=== PATIENT | male | born 1995 | race Caucasian/White ===

== ENCOUNTER 2022-06-02 16:42 | Emergency (ER) | payer OTHER, SELFPAY ==
[2022-06-02] VITALS (10 sets, daily range): BP systolic 137–159; BP diastolic 88–99; PULSE 64–73; RESP 14–18; TEMP 36.8; O2SAT 95–98; BMI 31.1
--- NOTE | 2022-06-02 17:03 | DI.CT.S_ITS ---
PROCEDURE: CT KIDNEY URETER BLADDER (KUB) INDICATIONS: flank pain, hx of stones TECHNIQUE: Axial sections were acquired from the lung bases to the pubic symphysis. Coronal and sagittal reformats were performed. For radiation dose reduction, the following was used: automated exposure control, adjustment of mA and/or kV according to patient size. COMPARISON: None. FINDINGS: Image quality: Excellent. Lung bases: Unremarkable. Heart: No significant findings. URINARY: Right Kidney: No hydronephrosis or renal stones. Suggestion of minimal right perinephric stranding. There is also suggestion of mild thickening of the right renal pelvis and subtle peripelvic stranding. Right Ureter: Right ureter is normal in course and caliber. Left Kidney: No stones or hydronephrosis. Left Ureter: No hydroureter. Bladder: There is mild circumferential urinary bladder wall thickening slightly more pronounced than expected for degree of distension. No perivesicular inflammation. ABDOMEN: Liver: Unremarkable. Gallbladder: Unremarkable in noncontrast appearance. Biliary ducts: Unremarkable. Pancreas: Unremarkable. Spleen: Unremarkable. Adrenal Glands: Unremarkable. Stomach and Bowel: Stomach, small bowel loops, and colon are unremarkable. Normal appendix. Peritoneum: No abnormal intraperitoneal fluid. No free air. Ventral Wall: No hernia. Abdominal Nodes: No enlarged retroperitoneal or mesenteric lymph nodes. Vessels: Aorta and inferior vena cava are normal in size. PELVIS: Pelvic Organs: Unremarkable. Pelvic Nodes: Unremarkable. Miscellaneous: No inguinal hernias are seen. Bones: Unremarkable. IMPRESSION: 1. Suggestion of minimal right perinephric and right renal pelvic stranding. Also, there is also mild circumferential urinary bladder wall thickening greater than expected for degree of distension. Findings may represent an infectious uropathy. Recommend clinical and laboratory correlation. 2. Otherwise, no evidence for urolithiasis or obstructive uropathy. 3. Normal appendix. Dictated by: Jono Spencer M.D. on 06/02/2022 at 17:30 Approved by: Jono Spencer M.D. on 06/02/2022 at 17:35
[2022-06-02] MEDS: KETOROLAC 30 MG/ML VIAL 15 MG IV (17:24)
[2022-06-02] MEDS: ONDANSETRON 4 MG/2 ML INJ IV (17:24)
[2022-06-02 17:31] LABS: Add Manual Diff / Slide Review NO; Basophils Absolute Auto 0 /uL (0-100); Basophils Percent Auto 0.5 % (0-2); Eosinophils Absolute Auto 0 /uL (0-450); Eosinophils Percent Auto 0.5 % (2-4); Hematocrit 39.6 % (41-53); Lymphocytes Absolute Auto 1500 /uL (1100-4500); Lymphocytes Percent Auto 20.7 % (25-40); Mean Corpuscular HGB Conc 35.3 % (30-36); Mean Corpuscular Hemoglobin 29.8 PG (26-34); Mean Corpuscular Volume 84.5 fL (80-100); Monocytes Absolute Auto 600 /uL (0-900); Monocytes Percent Auto 8.4 % (3-14); Neutrophils Absolute Auto 5100 /uL (1500-7000); Neutrophils Percent Auto 69.9 % (50-75); Platelet Count 226 X10^3/uL (150-400); Red Blood Cell Count 4.68 X10^6/uL (4.5-5.9); Red Cell Distribution Width 12.4 % (11.6-14.8); White Blood Cell Count 7.3 X10^3/uL (4.5-11.0)
[2022-06-02 17:35] LABS: Bacteria Urine None Seen; Culture Indicated Urine Cult Not Indicated; RBC Urine None Seen (0-5/HPF); Urine Comments Microscopic Normal; WBC Urine None Seen (0-5/HPF)
[2022-06-02 17:39] LABS: Alanine Aminotransferase 28 IU/L (<50); Albumin 4.6 g/dL (3.5-5.0); Albumin Globulin Ratio 1.4 (1.0-2.8); Alkaline Phosphatase 83 U/L (38-126); Aspartate Aminotransferase 25 IU/L (17-59); BUN Creatinine Ratio 7.4 (6-22); Bilirubin Total 0.5 mg/dL (0.2-1.3); Blood Urea Nitrogen 16 mg/dL (9-20); Calcium 8.8 mg/dL (8.4-10.2); Carbon Dioxide 30 mmol/L (22-32); Chloride 99 mmol/L (98-107); Estimated Glomerular Filt Rate 43 mL/min (>60); Globulin 3.2 g/dL (1.7-4.1); Glucose 109 mg/dL (70-100); HEMOLYSIS < 15 (0-50); Lipase 68 U/L (23-300); Potassium 3.5 mmol/L (3.4-5.1); Sodium 137 mmol/L (137-145); Total Protein 7.8 g/dL (6.3-8.2)
--- NOTE | 2022-06-02 17:50 | ED_ITS ---
HPI - Male Genitourinary <DO Edi Jade Last Filed: 06/03/22 22:04> General Chief complaint: Urogenital-Male Stated complaint: thinks kidney stone Time Seen by Provider: 06/02/22 17:02 Source: patient and family Mode of arrival: Ambulatory Related Data Allergies Allergy/AdvReac Type Severity Reaction Status Date / Time No Known Drug Allergies Allergy Verified 06/03/22 21:53 <DO Edi Pierce Last Filed: 06/03/22 02:01> History of Present Illness HPI Narrative: Patient is a 27-year-old male who presents with bilateral flank pain. He says it been ongoing for the last few days is actually kind of radiating around his left side. He has been unable to sleep secondary to the pain. He has been taking Tylenol 1000 mg every 6 hours for pain. He denies any painful frequent urination. No significant hematuria no nausea or vomiting. Pain does not radiate down the legs he denies any injury. <DO Edi Pierce Last Filed: 06/03/22 02:01> Review of Systems ROS Unobtainable: All systems reviewed & are unremarkable except as noted in HPI and below Patient History <DO Edi Jade Last Filed: 06/03/22 22:04> Social History Smoking Status: Former smoker Smoking Status: Former smoker alcohol intake frequency: a few times a week Substance Use Type: does not use Exam <DO Edi Jade Last Filed: 06/03/22 22:04> Initial Vital Signs Initial Vital Signs: Vital Signs Temperature 98.2 F 06/02/22 16:50 Pulse Rate 69 06/02/22 16:50 Respiratory Rate 18 06/02/22 16:50 Blood Pressure 154/99 H 06/02/22 16:50 Pulse Oximetry 97 06/02/22 16:50 Oxygen Delivery Method Room Air 06/02/22 16:50 <DO Edi Pierce Last Filed: 06/03/22 02:01> Initial Vital Signs Initial Vital Signs: Vital Signs Temperature 98.2 F 06/02/22 16:50 Pulse Rate 69 06/02/22 16:50 Respiratory Rate 18 06/02/22 16:50 Blood Pressure 154/99 H 06/02/22 16:50 Pulse Oximetry 97 06/02/22 16:50 Oxygen Delivery Method Room Air 06/02/22 16:50 GENERAL: Patient 27-year-old healthy and in no acute distress. HEENT: Head atraumatic,EOMI, pupils reactive, face symmetric, moist mucous membranes CARDIOVASCULAR: Regular rate and rhythm without murmurs, rubs or gallops. RESPIRATORY: Breath sounds equal bilaterally, no wheezes rales or rhonchi. ABDOMEN: Soft, nontender. Normoactive bowel sounds all 4 quadrants. No guarding or rebound. : Mild left flank pain EXTREMITIES: Normal range of motion, no clubbing or edema. Neurovascularly intact NEUROLOGICAL: Alert and oriented x4 SKIN: Warm, dry, no laceration, no petechiae, no rashes or lesions. Course <Kevon Cuellar DO - Last Filed: 06/03/22 22:04> Orders Ordered: Discontinued Medications Sodium Chloride (Normal Saline 0.9%) 1,000 mls @ 1,000 mls/hr IV BOLUS ONE Stop: 06/02/22 19:14 Last Infusion: 06/02/22 19:08 Dose: 0 mls/hr Documented By: Admin: 06/02/22 18:16 Dose: 1,000 mls/hr Documented By: WILFRED Sodium Chloride (Normal Saline 0.9%) 1,000 mls @ 1,000 mls/hr IV BOLUS ONE Stop: 06/02/22 19:14 Last Infusion: 06/02/22 21:05 Dose: 0 mls/hr Documented By: Admin: 06/02/22 19:12 Dose: 1,000 mls/hr Documented By: ANGIE Ketorolac Tromethamine (Ketorolac 30 Mg/Ml Vial) 15 mg IV NOW ONE Stop: 06/02/22 17:04 Last Admin: 06/02/22 17:24 Dose: 15 mg Documented By: WILFRED Ondansetron HCl (Ondansetron 4 Mg Odt) 4 mg PO NOW PRN PRN Reason: Nausea And Vomiting Ondansetron HCl (Ondansetron 4 Mg/2 Ml Inj) 4 mg IV NOW PRN PRN Reason: Nausea And Vomiting Last Admin: 06/02/22 17:24 Dose: 4 mg Documented By: WILFRED Vital Signs Vital signs: Vital Signs - 8 hr 06/02/22 18:11 06/02/22 18:12 06/02/22 18:12 Pulse Rate 67 68 Respiratory Rate 14 Blood Pressure 144/94 H Pulse Oximetry 95 97 Oxygen Delivery Method Room Air 06/02/22 18:30 06/02/22 18:30 06/02/22 19:00 Pulse Rate 65 Respiratory Rate Blood Pressure 137/88 143/94 H Pulse Oximetry 97 Oxygen Delivery Method 06/02/22 19:00 06/02/22 21:17 06/02/22 21:17 Pulse Rate 64 66 66 Respiratory Rate Blood Pressure 144/94 H Pulse Oximetry 97 96 96 Oxygen Delivery Method 06/02/22 22:37 06/02/22 22:41 06/02/22 22:41 Pulse Rate 67 67 67 Respiratory Rate Blood Pressure 159/88 H Pulse Oximetry 97 97 97 Oxygen Delivery Method <Madiha Yo DO - Last Filed: 06/03/22 02:01> Orders Ordered: Discontinued Medications Sodium Chloride (Normal Saline 0.9%) 1,000 mls @ 1,000 mls/hr IV BOLUS ONE Stop: 06/02/22 19:14 Last Infusion: 06/02/22 19:08 Dose: 0 mls/hr Documented By: Admin: 06/02/22 18:16 Dose: 1,000 mls/hr Documented By: WILFRED Sodium Chloride (Normal Saline 0.9%) 1,000 mls @ 1,000 mls/hr IV BOLUS ONE Stop: 06/02/22 19:14 Last Infusion: 06/02/22 21:05 Dose: 0 mls/hr Documented By: Admin: 06/02/22 19:12 Dose: 1,000 mls/hr Documented By: ANGIE Ketorolac Tromethamine (Ketorolac 30 Mg/Ml Vial) 15 mg IV NOW ONE Stop: 06/02/22 17:04 Last Admin: 06/02/22 17:24 Dose: 15 mg Documented By: WILFRED Ondansetron HCl (Ondansetron 4 Mg Odt) 4 mg PO NOW PRN PRN Reason: Nausea And Vomiting Ondansetron HCl (Ondansetron 4 Mg/2 Ml Inj) 4 mg IV NOW PRN PRN Reason: Nausea And Vomiting Last Admin: 06/02/22 17:24 Dose: 4 mg Documented By: WILFRED Vital Signs Vital signs: Vital Signs - 8 hr 06/02/22 18:11 06/02/22 18:12 06/02/22 18:12 Pulse Rate 67 68 Respiratory Rate 14 Blood Pressure 144/94 H Pulse Oximetry 95 97 Oxygen Delivery Method Room Air 06/02/22 18:30 06/02/22 18:30 06/02/22 19:00 Pulse Rate 65 Respiratory Rate Blood Pressure 137/88 143/94 H Pulse Oximetry 97 Oxygen Delivery Method 06/02/22 19:00 06/02/22 21:17 06/02/22 21:17 Pulse Rate 64 66 66 Respiratory Rate Blood Pressure 144/94 H Pulse Oximetry 97 96 96 Oxygen Delivery Method 06/02/22 22:37 06/02/22 22:41 06/02/22 22:41 Pulse Rate 67 67 67 Respiratory Rate Blood Pressure 159/88 H Pulse Oximetry 97 97 97 Oxygen Delivery Method MDM - Male Genitourinary <Kevon Cuellar DO - Last Filed: 06/03/22 22:04> Lab Data 06/02/22 17:20 06/02/22 19:40 Labs: Lab Results 06/02/22 06/02/22 06/02/22 Range/Units 17:10 17:10 17:20 WBC 7.3 (4.5-11.0) X10^3/uL RBC 4.68 (4.5-5.9) X10^6/uL Hgb 14.0 (13.5-17.5) g/dL Hct 39.6 L (41-53) % MCV 84.5 (80-100) fL MCH 29.8 (26-34) PG MCHC 35.3 (30-36) % RDW 12.4 (11.6-14.8) % Plt Count 226 (150-400) X10^3/uL Neut % (Auto) 69.9 (50-75) % Lymph % (Auto) 20.7 L (25-40) % [place] % (Auto) 8.4 (3-14) % Eos % (Auto) 0.5 L (2-4) % Baso % (Auto) 0.5 (0-2) % Neut # (Auto) 5100 (4410-3188) /uL Lymph # (Auto) 1500 (7007-5110) /uL [place] # (Auto) 600 (0-900) /uL Eos # (Auto) 0 (0-450) /uL Baso # (Auto) 0 (0-100) /uL Sodium (137-145) mmol/L Potassium (3.4-5.1) mmol/L Chloride (98-107) mmol/L Carbon Dioxide (22-32) mmol/L BUN (9-20) mg/dL Creatinine (0.66-1.25) mg/dL Estimated GFR (>60) mL/min BUN/Creatinine Ratio (6-22) Glucose (70-100) mg/dL Calcium (8.4-10.2) mg/dL Total Bilirubin (0.2-1.3) mg/dL AST (17-59) IU/L ALT (<50) IU/L Alkaline Phosphatase (38-126) U/L Total Creatine Kinase (55-170) U/L CK-MB (CK-2) (<2.37) ng/mL CK-MB (CK-2) Rel Index (1.5-5.0) % Troponin I (0.01-0.034) ng/mL Total Protein (6.3-8.2) g/dL Albumin (3.5-5.0) g/dL Globulin (1.7-4.1) g/dL Albumin/Globulin Ratio (1.0-2.8) Lipase (23-300) U/L Urine RBC None seen (0-5/HPF) Urine WBC None seen (0-5/HPF) Urine Bacteria None seen (None) Ur Culture Indicated? Cult not indicated Micro UA Comment Microscopic normal Ur Random Sodium 20 L (30-90) mmol/L Urine Creatinine 128.1 mg/dL 06/02/22 06/02/22 06/02/22 Range/Units 17:20 17:20 19:40 WBC (4.5-11.0) X10^3/uL RBC (4.5-5.9) X10^6/uL Hgb (13.5-17.5) g/dL Hct (41-53) % MCV (80-100) fL MCH (26-34) PG MCHC (30-36) % RDW (11.6-14.8) % Plt Count (150-400) X10^3/uL Neut % (Auto) (50-75) % Lymph % (Auto) (25-40) % [place] % (Auto) (3-14) % Eos % (Auto) (2-4) % Baso % (Auto) (0-2) % Neut # (Auto) (8930-7945) /uL Lymph # (Auto) (0697-8443) /uL [place] # (Auto) (0-900) /uL Eos # (Auto) (0-450) /uL Baso # (Auto) (0-100) /uL Sodium 137 136 L (137-145) mmol/L Potassium 3.5 3.7 (3.4-5.1) mmol/L Chloride 99 102 (98-107) mmol/L Carbon Dioxide 30 28 (22-32) mmol/L BUN 16 16 (9-20) mg/dL Creatinine 2.15 H 1.87 H (0.66-1.25) mg/dL Estimated GFR 43 L 51 L (>60) mL/min BUN/Creatinine Ratio 7.4 8.6 (6-22) Glucose 109 H 95 (70-100) mg/dL Calcium 8.8 7.7 L (8.4-10.2) mg/dL Total Bilirubin 0.5 (0.2-1.3) mg/dL AST 25 (17-59) IU/L ALT 28 (<50) IU/L Alkaline Phosphatase 83 (38-126) U/L Total Creatine Kinase 349 H (55-170) U/L CK-MB (CK-2) 0.38 (<2.37) ng/mL CK-MB (CK-2) Rel Index 0.1 L (1.5-5.0) % Troponin I < 0.012 (0.01-0.034) ng/mL Total Protein 7.8 (6.3-8.2) g/dL Albumin 4.6 (3.5-5.0) g/dL Globulin 3.2 (1.7-4.1) g/dL Albumin/Globulin Ratio 1.4 (1.0-2.8) Lipase 68 (23-300) U/L Urine RBC (0-5/HPF) Urine WBC (0-5/HPF) Urine Bacteria (None) Ur Culture Indicated? Micro UA Comment Ur Random Sodium (30-90) mmol/L Urine Creatinine mg/dL Urine Dip Bedside Urine Glucose Negative Bedside Urine Bilirubin - Negative Bedside Urine Ketone - Negative Urine Specific Valders 1.010 Bedside Urine Occult Blood +/- Bedside Urine pH 6 Bedside Urine Protein ++ 100 Bedside Urine Urobilinogen - Negative Bedside Urine Nitrite - Negative Bedside Urine Leukocytes - Negative Esterase <Madiha Srinath, DO - Last Filed: 06/03/22 02:01> Lab Data Labs: Lab Results 06/02/22 06/02/22 06/02/22 Range/Units 17:10 17:10 17:20 WBC 7.3 (4.5-11.0) X10^3/uL RBC 4.68 (4.5-5.9) X10^6/uL Hgb 14.0 (13.5-17.5) g/dL Hct 39.6 L (41-53) % MCV 84.5 (80-100) fL MCH 29.8 (26-34) PG MCHC 35.3 (30-36) % RDW 12.4 (11.6-14.8) % Plt Count 226 (150-400) X10^3/uL Neut % (Auto) 69.9 (50-75) % Lymph % (Auto) 20.7 L (25-40) % [place] % (Auto) 8.4 (3-14) % Eos % (Auto) 0.5 L (2-4) % Baso % (Auto) 0.5 (0-2) % Neut # (Auto) 5100 (9750-3772) /uL Lymph # (Auto) 1500 (6254-8578) /uL [place] # (Auto) 600 (0-900) /uL Eos # (Auto) 0 (0-450) /uL Baso # (Auto) 0 (0-100) /uL Sodium (137-145) mmol/L Potassium (3.4-5.1) mmol/L Chloride (98-107) mmol/L Carbon Dioxide (22-32) mmol/L BUN (9-20) mg/dL Creatinine (0.66-1.25) mg/dL Estimated GFR (>60) mL/min BUN/Creatinine Ratio (6-22) Glucose (70-100) mg/dL Calcium (8.4-10.2) mg/dL Total Bilirubin (0.2-1.3) mg/dL AST (17-59) IU/L ALT (<50) IU/L Alkaline Phosphatase (38-126) U/L Total Creatine Kinase (55-170) U/L CK-MB (CK-2) (<2.37) ng/mL CK-MB (CK-2) Rel Index (1.5-5.0) % Troponin I (0.01-0.034) ng/mL Total Protein (6.3-8.2) g/dL Albumin (3.5-5.0) g/dL Globulin (1.7-4.1) g/dL Albumin/Globulin Ratio (1.0-2.8) Lipase (23-300) U/L Urine RBC None seen (0-5/HPF) Urine WBC None seen (0-5/HPF) Urine Bacteria None seen (None) Ur Culture Indicated? Cult not indicated Micro UA Comment Microscopic normal Ur Random Sodium 20 L (30-90) mmol/L Urine Creatinine 128.1 mg/dL 06/02/22 06/02/22 06/02/22 Range/Units 17:20 17:20 19:40 WBC (4.5-11.0) X10^3/uL RBC (4.5-5.9) X10^6/uL Hgb (13.5-17.5) g/dL Hct (41-53) % MCV (80-100) fL MCH (26-34) PG MCHC (30-36) % RDW (11.6-14.8) % Plt Count (150-400) X10^3/uL Neut % (Auto) (50-75) % Lymph % (Auto) (25-40) % [place] % (Auto) (3-14) % Eos % (Auto) (2-4) % Baso % (Auto) (0-2) % Neut # (Auto) (9807-7673) /uL Lymph # (Auto) (7748-2915) /uL [place] # (Auto) (0-900) /uL Eos # (Auto) (0-450) /uL Baso # (Auto) (0-100) /uL Sodium 137 136 L (137-145) mmol/L Potassium 3.5 3.7 (3.4-5.1) mmol/L Chloride 99 102 (98-107) mmol/L Carbon Dioxide 30 28 (22-32) mmol/L BUN 16 16 (9-20) mg/dL Creatinine 2.15 H 1.87 H (0.66-1.25) mg/dL Estimated GFR 43 L 51 L (>60) mL/min BUN/Creatinine Ratio 7.4 8.6 (6-22) Glucose 109 H 95 (70-100) mg/dL Calcium 8.8 7.7 L (8.4-10.2) mg/dL Total Bilirubin 0.5 (0.2-1.3) mg/dL AST 25 (17-59) IU/L ALT 28 (<50) IU/L Alkaline Phosphatase 83 (38-126) U/L Total Creatine Kinase 349 H (55-170) U/L CK-MB (CK-2) 0.38 (<2.37) ng/mL CK-MB (CK-2) Rel Index 0.1 L (1.5-5.0) % Troponin I < 0.012 (0.01-0.034) ng/mL Total Protein 7.8 (6.3-8.2) g/dL Albumin 4.6 (3.5-5.0) g/dL Globulin 3.2 (1.7-4.1) g/dL Albumin/Globulin Ratio 1.4 (1.0-2.8) Lipase 68 (23-300) U/L Urine RBC (0-5/HPF) Urine WBC (0-5/HPF) Urine Bacteria (None) Ur Culture Indicated? Micro UA Comment Ur Random Sodium (30-90) mmol/L Urine Creatinine mg/dL Urine Dip Bedside Urine Glucose Negative Bedside Urine Bilirubin - Negative Bedside Urine Ketone - Negative Urine Specific [place] 1.010 Bedside Urine Occult Blood +/- Bedside Urine pH 6 Bedside Urine Protein ++ 100 Bedside Urine Urobilinogen - Negative Bedside Urine Nitrite - Negative Bedside Urine Leukocytes - Negative Esterase Imaging Data CT scan - abdomen/pelvis: Radiologist's Impression: PROCEDURE:? CT KIDNEY URETER BLADDER (KUB) ? INDICATIONS:? flank pain, hx of stones ? TECHNIQUE:? Axial sections were acquired from the lung bases to the pubic symphysis.? Coronal and sagittal reformats were performed.? For radiation dose reduction, the following was used: ?automated exposure control, adjustment of mA and/or kV according to patient size.? ? COMPARISON:? None. ? FINDINGS:? Image quality:? Excellent.? ? Lung bases:? Unremarkable.? ? Heart:? No significant findings. ? URINARY: Right Kidney:? No hydronephrosis or renal stones.? Suggestion of minimal right perinephric stranding.? There is also suggestion of mild thickening of the right renal pelvis and subtle peripelvic stranding.? Right Ureter:? Right ureter is normal in course and caliber.? ? Left Kidney: ? No stones or hydronephrosis. Left Ureter:? No hydroureter.? ? Bladder:? There is mild circumferential urinary bladder wall thickening slightly more pronounced than expected for degree of distension.? No perivesicular inflammation. ? ABDOMEN: Liver:? Unremarkable.? ? Gallbladder:? Unremarkable in noncontrast appearance.? ? Biliary ducts:? Unremarkable.? ? Pancreas:? Unremarkable.? ? Spleen:? Unremarkable.? ? Adrenal Glands:? Unremarkable.? ? ? Stomach and Bowel:? Stomach, small bowel loops, and colon are unremarkable.? Normal appendix. Peritoneum:? No abnormal intraperitoneal fluid.? No free air.? ? Ventral Wall: ? No hernia.? Abdominal Nodes:? No enlarged retroperitoneal or mesenteric lymph nodes.? Vessels:? Aorta and inferior vena cava are normal in size.? ? PELVIS: Pelvic Organs:? Unremarkable.? ? Pelvic Nodes: Unremarkable. Miscellaneous: No inguinal hernias are seen. ? ? ? Bones:? Unremarkable. ? IMPRESSION:? ? 1. Suggestion of minimal right perinephric and right renal pelvic stranding.? Also, there is also mild circumferential urinary bladder wall thickening greater than expected for degree of distension.? Findings may represent an infectious uropathy.? Recommend clinical and laboratory correlation. ? 2. Otherwise, no evidence for urolithiasis or obstructive uropathy. ? 3. Normal appendix.? Dictated by: Jono Spencer M.D. on 06/02/2022 at 17:30 MDM Narrative Medical decision making narrative: Patient healthy 27-year-old male who presents with bilateral flank pain radiating to the left side. Blood work reveals an RODRIGUEZ with a creatinine of 2.1 which does improve with 2 L of IV fluids 1.7. He is noted to be mildly hypertensive blood pressure 150s to 140s. He is no evidence of nephrolithiasis. In fact he has right-sided perinephric stranding suspicious for infectious etiology. However patient has no fever chills leukocytosis or sign of infection. Urinalysis is also negative. He is feeling better after Toradol. RODRIGUEZ may or may not be related to elevated blood pressure though his blood pressure does not seem to be extreme. Commended Tylenol and not ibuprofen. Recommended that he check his blood pressure regularly. Discharge Plan Departure Patient Disposition: Home Clinical Impression: RODRIGUEZ (acute kidney injury), Kidney pain Instructions: DI for Kidney Failure Activity Restrictions/Additional Instructions: *You have been diagnosed with acute kidney injury *What to do: At this time please have your blood work rechecked either tomorrow or the next day. Avoid ibuprofen/Aleve/naproxen/NSAIDs If your kidney function does not improve you may need to have further evaluation of your kidneys with the nephrologists or renal ultrasound I do recommend that you check her blood pressure 1 to 2 times daily and keep a log. *Continue to take medications as directed Tylenol 1000 mg every 6 hours if needed for [id number] pain *Follow up with your primary care provider in 2-3 days or call [phone] *Return to ER if you should have increasing pain, nausea vomiting fever or any new, worsening or concerning symptoms Referrals: ProviderMartha [Primary Care Provider] - Stand Alone Forms: Patient Portal/API
[2022-06-02 18:15] LABS: Creatine Kinase 349 U/L (55-170)
[2022-06-02] MEDS: SODIUM CHLORIDE 0.9% 1,000 ML 1000 ML IV ×2 (18:16→19:12)
[2022-06-02 18:29] LABS: Troponin I < 0.012 ng/mL (0.01-0.034)
[2022-06-02 18:31] LABS: CKMB % Relative Index 0.1 % (1.5-5.0); Creatine Kinase MB 0.38 ng/mL (<2.37)
[2022-06-02 20:08] LABS: BUN Creatinine Ratio 8.6 (6-22); Blood Urea Nitrogen 16 mg/dL (9-20); Calcium 7.7 mg/dL (8.4-10.2); Carbon Dioxide 28 mmol/L (22-32); Chloride 102 mmol/L (98-107); Estimated Glomerular Filt Rate 51 mL/min (>60); Glucose 95 mg/dL (70-100); HEMOLYSIS < 15 (0-50); Potassium 3.7 mmol/L (3.4-5.1); Sodium 136 mmol/L (137-145)
[2022-06-02 21:56] LABS: Creatinine Urine Random 128.1 mg/dL; Sodium Urine Random 20 mmol/L (30-90)
== END 2022-06-02 22:49 | disposition home or self-care (01) ==
PROVIDERS: Emergency Medicine; Emergency Provider Emergency Medicine
DX: N17.9 Acute kidney failure, unspecified (principal); N23 Unspecified renal colic; R03.0 Elevated blood-pressure reading, without diagnosis of hypertension
CPT/HCPCS: 36415; 74176; 80048; 80053; 81003; 81015; 82550; 82553; 82570; 83690; 84300; 84484; 85025; 96361; 96374; 96375; 99284; J1885; J2405

== ENCOUNTER 2022-06-03 21:39 | Emergency (ER) | payer OTHER, SELFPAY ==
[2022-06-03 21:49] VITALS: BP 158/101; PULSE 62; RESP 16; TEMP 36.9; O2SAT 98; BMI 32.3
[2022-06-03] MEDS: SODIUM CHLORIDE 0.9% 1,000 ML 1000 ML IV (22:23)
[2022-06-03 22:27] LABS: Add Manual Diff / Slide Review NO; Basophils Absolute Auto 0 /uL (0-100); Basophils Percent Auto 0.2 % (0-2); Eosinophils Absolute Auto 0 /uL (0-450); Eosinophils Percent Auto 0.4 % (2-4); Hematocrit 38.4 % (41-53); Hemoglobin 13.2 g/dL (13.5-17.5); Lymphocytes Absolute Auto 1300 /uL (1100-4500); Lymphocytes Percent Auto 15.3 % (25-40); Mean Corpuscular HGB Conc 34.5 % (30-36); Mean Corpuscular Hemoglobin 29.6 PG (26-34); Mean Corpuscular Volume 85.9 fL (80-100); Monocytes Absolute Auto 600 /uL (0-900); Monocytes Percent Auto 7.5 % (3-14); Neutrophils Absolute Auto 6500 /uL (1500-7000); Neutrophils Percent Auto 76.6 % (50-75); Platelet Count 214 X10^3/uL (150-400); Red Blood Cell Count 4.47 X10^6/uL (4.5-5.9); Red Cell Distribution Width 12.4 % (11.6-14.8); White Blood Cell Count 8.5 X10^3/uL (4.5-11.0)
[2022-06-03 22:36] LABS: Alanine Aminotransferase 25 IU/L (<50); Albumin 4.4 g/dL (3.5-5.0); Albumin Globulin Ratio 1.5 (1.0-2.8); Alkaline Phosphatase 66 U/L (38-126); Aspartate Aminotransferase 24 IU/L (17-59); BUN Creatinine Ratio 6.5 (6-22); Bilirubin Total 0.8 mg/dL (0.2-1.3); Blood Urea Nitrogen 14 mg/dL (9-20); Calcium 8.7 mg/dL (8.4-10.2); Carbon Dioxide 27 mmol/L (22-32); Chloride 101 mmol/L (98-107); Estimated Glomerular Filt Rate 42 mL/min (>60); Globulin 2.9 g/dL (1.7-4.1); Glucose 91 mg/dL (70-100); Sodium 136 mmol/L (137-145); Total Protein 7.3 g/dL (6.3-8.2)
[2022-06-03 22:37] LABS: Lactate (Lactic Acid) 1.1 mmol/L (0.7-2.1)
[2022-06-03 22:40] LABS: HEMOLYSIS 61 (0-50); Potassium 4.4 mmol/L (3.4-5.1)
[2022-06-03] MEDS: cefTRIAXone 1,000 MG in SODIUM CHLORIDE 0.9% 100 ML 200 MG IV (22:42)
[2022-06-03] MEDS: KETOROLAC 30 MG/ML VIAL 15 MG IV (22:45)
[2022-06-03 22:53] LABS: Procalcitonin 0.05 ng/mL (<0.5)
--- NOTE | 2022-06-03 23:43 | ED.ABDPAIN ---
HPI - Abdominal Pain General Chief Complaint: Urogenital-Male Stated Complaint: kidney pain getting worse Time Seen by Provider: 06/03/22 21:58 Source: patient Mode of arrival: Ambulatory History of Present Illness HPI narrative: Patient is a 27-year-old male presenting today with left flank pain radiating to his left testicle. He was seen evaluated here yesterday he had blood work and CT done. CT shows some right perinephric stranding along with mild circumferential urinary bladder wall thickening there was suspicion for infectious uropathy. However patient does not have fever or leukocytosis. He was found to have acute kidney injury with creatinine of 2.15. Creatinine function improved 1.87 after 2 L of IV fluid. Discharged home with renal pain. He returns today for worsening pain. No fever chills nausea or vomiting. He was instructed not to take ibuprofen and continues to take Tylenol. The pain is just getting worse. Related Data Previous Rx's Medication Instructions Recorded cephalexin 500 mg capsule 500 mg PO BID 7 days #14 caps 06/04/22 hydrocodone 5 mg-acetaminophen 325 1 tab PO Q6H PRN pain #10 tabs 06/04/22 mg tablet Allergies Allergy/AdvReac Type Severity Reaction Status Date / Time No Known Drug Allergies Allergy Verified 06/03/22 21:53 Review of Systems Review of Systems ROS Unobtainable: All systems reviewed & are unremarkable except as noted in HPI and below Patient History Social History Smoking Status: Former smoker Smoking Status: Former smoker alcohol intake frequency: a few times a week Substance Use Type: does not use Exam Initial Vital Signs Initial Vital Signs: Vital Signs Temperature 98.5 F 06/03/22 21:49 Pulse Rate 62 06/03/22 21:49 Respiratory Rate 16 06/03/22 21:49 Blood Pressure 158/101 H 06/03/22 21:49 Pulse Oximetry 98 06/03/22 21:49 Oxygen Delivery Method Room Air 06/03/22 21:49 GENERAL: Alert well-appearing 27-year-old male in no in [id number] HEENT: Head atraumatic,EOMI, pupils reactive, face symmetric, moist mucous membranes CARDIOVASCULAR: Regular rate and rhythm without murmurs, rubs or gallops. RESPIRATORY: Breath sounds equal bilaterally, no wheezes rales or rhonchi. ABDOMEN: Soft, minimal left lower quadrant pain without guarding or rebound no distention : Left CVA tenderness EXTREMITIES: Normal range of motion, no clubbing or edema. Neurovascularly intact NEUROLOGICAL: Alert and oriented x4.Normal gait and speech. SKIN: Warm, dry, no laceration, no petechiae, no rashes or lesions. Course Orders Ordered: ED Orders 06/03/22 22:15 CBC Auto Diff [Complete Blood Count AUTO DIFF] Stat CMP [Comprehensive Metabolic Panel] Stat Lactate (Lactic Acid) Stat Procalcitonin Stat 06/03/22 22:40 Blood Culture Stat Discontinued Medications Hydrocodone Bitart/Acetaminophen (Hydrocodone/Acet 5/325 Prepack) 1 bottle MISC SEEINSTR ONE Stop: 06/04/22 00:09 Last Admin: 06/04/22 00:30 Dose: 1 bottle Documented By: MELVIN Sodium Chloride (Normal Saline 0.9%) 1,000 mls @ 1,000 mls/hr IV BOLUS ONE Stop: 06/03/22 22:58 Last Infusion: 06/04/22 00:02 Dose: 0 mls/hr Documented By: Admin: 06/03/22 22:23 Dose: 1,000 mls/hr Documented By: AMU Ceftriaxone Sodium 1,000 mg/ (Sodium Chloride) 100 mls @ 200 mls/hr IV NOW ONE Stop: 06/03/22 22:01 Last Infusion: 06/03/22 23:09 Dose: 0 mls/hr Documented By: Admin: 06/03/22 22:42 Dose: 200 mls/hr Documented By: AMU Sodium Chloride (Normal Saline 0.9%) 1,000 mls @ 1,000 mls/hr IV BOLUS ONE Stop: 06/04/22 01:01 Last Admin: 06/04/22 00:03 Dose: 1,000 mls/hr Documented By: MELVIN Ketorolac Tromethamine (Ketorolac 30 Mg/Ml Vial) 15 mg IV NOW ONE Stop: 06/03/22 22:27 Last Admin: 06/03/22 22:45 Dose: 15 mg Documented By: AMU Vital Signs Vital signs: Vital Signs - 8 hr 06/03/22 21:49 06/04/22 01:24 Temperature 98.5 F Pulse Rate 62 84 Respiratory Rate 16 18 Blood Pressure 158/101 H 180/95 H Pulse Oximetry 98 98 Oxygen Delivery Method Room Air Room Air MDM - Abdominal Pain Lab Data 06/03/22 22:15 06/03/22 22:15 Labs: Lab Results 06/03/22 06/03/22 06/03/22 Range/Units 22:15 22:15 22:15 WBC 8.5 (4.5-11.0) X10^3/uL RBC 4.47 L (4.5-5.9) X10^6/uL Hgb 13.2 L (13.5-17.5) g/dL Hct 38.4 L (41-53) % MCV 85.9 (80-100) fL MCH 29.6 (26-34) PG MCHC 34.5 (30-36) % RDW 12.4 (11.6-14.8) % Plt Count 214 (150-400) X10^3/uL Neut % (Auto) 76.6 H (50-75) % Lymph % (Auto) 15.3 L (25-40) % Jerome % (Auto) 7.5 (3-14) % Eos % (Auto) 0.4 L (2-4) % Baso % (Auto) 0.2 (0-2) % Neut # (Auto) 6500 (1561-4005) /uL Lymph # (Auto) 1300 (2081-3387) /uL Jerome # (Auto) 600 (0-900) /uL Eos # (Auto) 0 (0-450) /uL Baso # (Auto) 0 (0-100) /uL Sodium 136 L (137-145) mmol/L Potassium 4.4 (3.4-5.1) mmol/L Chloride 101 (98-107) mmol/L Carbon Dioxide 27 (22-32) mmol/L BUN 14 (9-20) mg/dL Creatinine 2.17 H (0.66-1.25) mg/dL Estimated GFR 42 L (>60) mL/min BUN/Creatinine Ratio 6.5 (6-22) Glucose 91 (70-100) mg/dL Lactate 1.1 (0.7-2.1) mmol/L Calcium 8.7 (8.4-10.2) mg/dL Total Bilirubin 0.8 (0.2-1.3) mg/dL AST 24 (17-59) IU/L ALT 25 (<50) IU/L Alkaline Phosphatase 66 (38-126) U/L Total Protein 7.3 (6.3-8.2) g/dL Albumin 4.4 (3.5-5.0) g/dL Globulin 2.9 (1.7-4.1) g/dL Albumin/Globulin Ratio 1.5 (1.0-2.8) Procalcitonin 0.05 (<0.5) ng/mL MDM Narrative Medical decision making narrative: 27-year-old male with left-sided flank pain. CT noncontrasted KUB yesterday reports some right-sided perinephric stranding concern for infectious etiology. He again has no leukocytosis he has a negative lactate he has a negative procalcitonin. Blood cultures are drawn and pending although I do not have any suspicion of sepsis. He is given 1 dose of Rocephin for possible infectious etiology. He is also given 1 dose of Toradol in the ED. he is given IV fluids as well. At this time with renal function and CT yesterday with stable labs I do not think reimaging would be helpful and with IV contrast may actually be more harmful. At this time I think reasonable to treat with antibiotics and see if pain improves along with giving some further pain medication. Creatinine today is stable 2.17, previously 2.15. He will need evaluation by Nephrology and Urology. At this time he remains stable he has been sleeping Toradol really does seem to help him for pain. However do not want to continue NSAIDs with recent and current renal function. Discharge Plan Departure Patient Disposition: Home Clinical Impression: RODRIGUEZ (acute kidney injury), Infection of kidney Instructions: DI for Kidney Infection Activity Restrictions/Additional Instructions: *You have been diagnosed with kidney infection, acute kidney injury *What to do: At this time stay hydrated. Avoid ibuprofen. Will treat you for infection see if that helps clear you. I do strongly recommend that you see weigher bulker and urologist in regards to your kidneys. He will likely need further imaging and evaluation. *Continue to take medications as directed-->SENT TO [facility] [place] Keflex 500 mg twice a day for 7 days [place] 1 tablet every 6 hours if needed for severe pain *Follow up with your primary care provider in 2-3 days or call [phone] Call Urology to schedule follow-up appointment, you will also likely need to see a weigher bulker as well please ask your PCP in regards to referral *Return to ER if you should have increasing pain persistent vomiting fever chills or any new, worsening or concerning symptoms CONTROLLED SUBSTANCE DISCHARGE (Narcotoic/benzodiazepine/Flexeril/Phenergan) 1. You have been prescribed narcotic medications, it does have acetaminophen/Tylenol/paracetamol in it, DO NOT TAKE MORE THAN 4,00mg in 24 hours of Tylenol. TRAMADOL DOES NOT CONTAIN TYLENOL 2. Please understand that we cannot provide further refills of narcotics, benzodiazepines or controlled substances through the ED and her pain management will need to be through your provider. 3. While on these medications you cannot drive or operate heavy machinery. 4. You cannot sign legal documents or perform any duties such as this. 5. As long as you're taking opiate pain medications he should also be taking a stool softener such as Colace, Dulcolax, MiraLAX or prune juice, to help avoid constipation. Prescriptions: New hydrocodone-acetaminophen 5-325 mg tablet 1 tab PO Q6H PRN (Reason: pain) Qty: 10 0RF cephalexin 500 mg capsule 500 mg PO BID 7 Days Qty: 14 0RF Referrals: Narendra Ceja MD [Physician] - Provider,Martha ROLDAN [Primary Care Provider] - Rhett Correa MD [Physician] - Stand Alone Forms: Patient Portal/API
[2022-06-04] MEDS: SODIUM CHLORIDE 0.9% 1,000 ML 1000 ML IV (00:03)
[2022-06-04] MEDS: HYDROCODONE/ACET 5/325 PREPACK 1 BOTTLE MISC (00:30)
[2022-06-04 01:24] VITALS: BP 180/95; PULSE 84; RESP 18; O2SAT 98
== END 2022-06-04 01:30 | disposition home or self-care (01) ==
PROVIDERS: Emergency Provider Emergency Medicine
DX: N17.9 Acute kidney failure, unspecified (principal); N15.9 Renal tubulo-interstitial disease, unspecified
CPT/HCPCS: 36415; 80053; 83605; 84145; 85025; 87040; 96365; 96375; 99284; J0696; J1885